=== PATIENT | male | born 1945 | race Caucasian/White ===

== ENCOUNTER 2017-06-07 10:26 | Inpatient (IN) | payer MEDICARE, OTHER ==
[2017-06-07] MEDS: ASPIRIN 325 MG TAB PO (12:53)
[2017-06-07] MEDS: NITROGLYCERIN 2% 1 GM OINT PKT TD (12:56)
[2017-06-07 12:58] LABS: ADD MAN DIFF? NO
[2017-06-07 13:00] LABS: WHITE BLOOD COUNT 7.3 10^3/ul (4.8-10.8)
[2017-06-07 13:00] LABS: BASOPHILS % 0.4 % (0.0-2.0); EOSINOPHILS # 0.1 10^3/ul (0.0-0.5); EOSINOPHILS % 1.6 % (0.0-7.0); HEMATOCRIT 41.2 % (42.0-52.0); HEMOGLOBIN 13.6 g/dl (14.0-18.0); LYMPHOCYTES # 4.7 10^3/ul (0.8-2.9); LYMPHOCYTES % 64.1 % (15.0-51.0); MEAN CORPUSCULAR HEMOGLOBIN 30.6 pg (29.0-33.0); MEAN CORPUSCULAR VOLUME 92.6 fl (82.0-101.0); MEAN PLATELET VOLUME 10.7 fl (7.4-10.4); MONOCYTE # 0.5 10^3/ul (0.3-0.9); MONOCYTES % 6.9 % (0.0-11.0); NEUTROPHIL # 1.9 10^3/ul (1.6-7.5); NEUTROPHILS % 26.7 % (39.0-77.0); PLATELET COUNT 151 10^3/UL (140-415); RED BLOOD COUNT 4.45 10^6/ul (4.70-6.10)
[2017-06-07 13:17] LABS: ANION GAP 15 (8-16); BLOOD UREA NITROGEN 11 mg/dl (7-20); CALCIUM 8.9 mg/dl (8.4-10.2); CARBON DIOXIDE 23 mmol/L (21-31); CHLORIDE 106 mmol/L (97-110); CREATININE 0.94 mg/dl (0.61-1.24); GLUCOSE 98 mg/dl (70-220); POTASSIUM 4.6 mmol/L (3.5-5.1); SODIUM 139 mmol/L (135-144)
[2017-06-07 13:21] LABS: INR 0.91; PROTIME 12.3 Sec (11.9-14.9)
[2017-06-07 13:22] LABS: PARTIAL THROMBOPLASTIN TIME 28.1 Sec (25.0-35.0)
[2017-06-07 13:29] LABS: TROPONIN-I < 0.012 ng/ml (0.00-0.12)
[2017-06-07 20:17] LABS: CREATINE KINASE 114 IU/L (23-200)
[2017-06-07 20:29] LABS: CK INDEX 0.3; TROPONIN-I 0.017 ng/ml (0.00-0.12)
[2017-06-07 20:31] LABS: CK-MB 0.34 ng/ml (0.0-2.4)
[2017-06-08 01:24] LABS: CREATINE KINASE 112 IU/L (23-200)
[2017-06-08 01:37] LABS: CK INDEX 0.4
[2017-06-08 01:48] LABS: CK-MB 0.42 ng/ml (0.0-2.4); TROPONIN-I < 0.012 ng/ml (0.00-0.12)
[2017-06-08] MEDS ORDERED: NACL 0.9% 3 ML SYG IV (02:00)
[2017-06-08] MEDS ORDERED: morphine 2 MG INJ IV (02:00)
[2017-06-08] MEDS ORDERED: ONDANSETRON 4 MG INJ IV (02:00)
[2017-06-08] MEDS ORDERED: BISACODYL (EC) 5 MG TAB PO (02:00)
[2017-06-08] MEDS ORDERED: ACETAMINOPHEN 325 MG TAB PO (02:00)
[2017-06-08] MEDS ORDERED: DOCUSATE SODIUM 100 MG CAP PO (02:00)
[2017-06-08] MEDS ORDERED: NITROGLYCERIN (SL) 0.4 MG TAB SL (02:00)
[2017-06-08] MEDS: ENALAPRIL 5 MG TAB PO ×2 (02:39→08:20)
[2017-06-08 05:25] LABS: ADD MAN DIFF? NO
[2017-06-08 05:32] LABS: WHITE BLOOD COUNT 7.8 10^3/ul (4.8-10.8)
[2017-06-08 05:32] LABS: BASOPHILS % 0.4 % (0.0-2.0); EOSINOPHILS # 0.2 10^3/ul (0.0-0.5); EOSINOPHILS % 2.4 % (0.0-7.0); HEMATOCRIT 38.2 % (42.0-52.0); HEMOGLOBIN 12.9 g/dl (14.0-18.0); LYMPHOCYTES # 4.9 10^3/ul (0.8-2.9); LYMPHOCYTES % 62.6 % (15.0-51.0); MEAN CORPUSCULAR HEMOGLOBIN 31.1 pg (29.0-33.0); MEAN CORPUSCULAR HGB CONC 33.8 g/dl (32.0-37.0); MEAN PLATELET VOLUME 10.6 fl (7.4-10.4); MONOCYTE # 0.6 10^3/ul (0.3-0.9); MONOCYTES % 7.3 % (0.0-11.0); NEUTROPHIL # 2.1 10^3/ul (1.6-7.5); NEUTROPHILS % 27.2 % (39.0-77.0); PLATELET COUNT 146 10^3/UL (140-415); RED BLOOD COUNT 4.15 10^6/ul (4.70-6.10)
[2017-06-08] MEDS: PANTOPRAZOLE (EC) 40 MG TAB PO (06:02)
[2017-06-08 06:05] LABS: ALANINE AMINOTRANSFERASE 66 IU/L (13-69); ALBUMIN 3.9 g/dl (3.3-4.9); ALBUMIN/GLOBULIN RATIO 1.34; ALKALINE PHOSPHATASE 75 IU/L (42-121); ANION GAP 13 (8-16); ASPARTATE AMINO TRANSFERASE 43 IU/L (15-46); BILIRUBIN,INDIRECT 0.1 mg/dl (0-1.1); BILIRUBIN,TOTAL 0.1 mg/dl (0.2-1.3); BLOOD UREA NITROGEN 12 mg/dl (7-20); CALCIUM 8.7 mg/dl (8.4-10.2); CARBON DIOXIDE 27 mmol/L (21-31); CHLORIDE 107 mmol/L (97-110); CHOLESTEROL 191 mg/dl (100-200); CREATININE 1.01 mg/dl (0.61-1.24); GLUCOSE 89 mg/dl (70-220); HDL CHOLESTEROL 38 mg/dl (31-75); LDL CHOLESTEROL,CALCULATED 109 mg/dl; POTASSIUM 4.3 mmol/L (3.5-5.1); SODIUM 143 mmol/L (135-144); TOTAL PROTEIN 6.8 g/dl (6.1-8.1); TRIGLYCERIDES 222 mg/dl (0-149)
[2017-06-08 07:09] LABS: HEMOGLOBIN A1C 5.6 % (0-5.9)
[2017-06-08] MEDS: ASPIRIN (EC) 81 MG TAB PO (08:19)
[2017-06-08] MEDS: CLOPIDOGREL 75 MG TAB PO (08:19)
[2017-06-08] MEDS: AMLODIPINE 10 MG TAB PO (08:20)
[2017-06-08] MEDS ORDERED: TAMSULOSIN (SR) 0.4 MG CAP PO (21:00)
[2017-06-08] MEDS ORDERED: ROSUVASTATIN CALCIUM 40 MG TABLET PO (21:00)
[2017-06-09] MEDS ORDERED: ISOSORBIDE DINITRATE 5 MG TAB PO (09:00)
== END 2017-06-08 13:40 | disposition left against medical advice (07) | DRG 313 ==
LOC: MS3 13:58 → E/R 10:26
DX: R07.9 Chest pain, unspecified (principal); I25.10 Atherosclerotic heart disease of native coronary artery without angina pectoris; I10 Essential (primary) hypertension; E78.5 Hyperlipidemia, unspecified; N40.0 Benign prostatic hyperplasia without lower urinary tract symptoms; I73.9 Peripheral vascular disease, unspecified; K21.9 Gastro-esophageal reflux disease without esophagitis; Z86.73 Personal history of transient ischemic attack (TIA), and cerebral infarction without residual deficits; Z95.5 Presence of coronary angioplasty implant and graft; Z95.1 Presence of aortocoronary bypass graft
CPT/HCPCS: 36415; 71045; 80048; 80053; 80061; 82550; 82553; 83036; 84443; 84484; 85025; 85610; 85730; 93005; 93306; 99285-25